=== PATIENT | male | born 1955 | race African-American/Black ===

== ENCOUNTER 2016-12-23 17:22 | Emergency (ER) | payer OTHER ==
[~2016-12-23] VITALS: Ht 167.6 cm; Wt 523.9 kg
[~2016-12-23 17:22] MED LIST: CATAPRES0.2 MG ORAL; COZAAR50 MG ORAL; ELIMITE 5% CREA60 GM TOPIC; GLIPIZIDE5 MG ORAL; HYDRALAZINE HCL50 MG ORAL; HYDROCODON-ACE1 EA13 ORAL; IBUPROFEN600 MG ORAL; NKM; NORVASC10 MG ORAL; NOVOLOG100 UNIT/3 SUBQ; ZOFRAN4 M3 ORAL; insulin
[2016-12-23 18:13] VITALS: BP 137/73
[2016-12-23] MEDS ORDERED: metFORMIN 500mg tab ORAL SCH (18:45)
[2016-12-23] MEDS ORDERED: METFORMIN HCL500 M1 ORAL (20:01)
[2016-12-23 20:15] VITALS: BP 137/73
--- NOTE | 2016-12-23 21:12 | Emergency Room Report ---
History of Present Illness General Chief Complaint: General Complaint Source: Patient Present Illness HPI The patient is a 61-year-old male with a history of type 2 diabetes presenting for feet pain. The patient states that he has been walking more than usual and experienced foot pain so he called 911. EMS took a blood sugar in route which was found to be significantly elevated. The patient admits to type 2 diabetes and has been prescribed oral medication as well as insulin but has not been taking it because he states he has been exercising more and does not need any medication. He is unsure of which medications he is taking or the dosages. Foot pain is described as a 6/10 dull ache to the bottom of both feet and does not radiate. Pain worse with walking. He denies injuring the feet in any way. He denies numbness or tingling. Denies other symptoms including nausea, vomiting, fever, chills, dizziness, blurred vision, diaphoresis, rash, fatigue, chest pain, shortness of breath, dysuria, increased urinary frequency Allergies: Coded Allergies: PENICILLINS (Verified Allergy, Unknown, Hives, 05/04/14) Patient states he gets hives when last taken Patient History Past Medical History: see triage record Pertinent Family History: none Reviewed Nursing Documentation: PMH: Agreed, PSxH: Agreed Nursing Documentation-PMH Hx Cardiac Problems: No Hx Hypertension: Yes Hx Pacemaker: No Hx Asthma: No Hx COPD: No Hx Diabetes: No Hx Cancer: No Hx Gastrointestinal Problems: No Hx Dialysis: No History Of Psychiatric Problem: No Hx Neurological Problems: No Hx Cerebrovascular Accident: No Hx Seizures: No Review of Systems All Other Systems: negative except mentioned in HPI Physical Exam Vital Signs Date Time Temp Pulse Resp B/P Pulse Ox O2 Delivery O2 Flow Rate FiO2 12/23/16 17:19 99.0 86 18 137/73 98 Sp02 EP Interpretation: reviewed, normal General Appearance: no apparent distress, alert, GCS 15, non-toxic Head: normocephalic, atraumatic Eyes: bilateral eye PERRL, bilateral eye normal inspection ENT: hearing grossly normal, normal pharynx, no angioedema, normal voice Respiratory: chest non-tender, lungs clear, normal breath sounds, speaking full sentences Cardiovascular #1: regular rate, rhythm, no edema Musculoskeletal: normal inspection, back normal, gait/station normal, normal range of motion, tender - TTP over plantar surface of bilat feet Neurologic: alert, oriented x3, responsive, motor strength/tone normal, sensory intact, speech normal Psychiatric: judgement/insight normal, memory normal, no suicidal/homicidal ideation Skin: normal color, no rash, warm/dry, well hydrated Lymphatic: no adenopathy Medical Decision Making PA Attestation Dr. Veliz is my supervising physician. Patient management was discussed with my supervising physician Diagnostic Impression: Primary Impression: Diabetes Qualified Codes: E11.65 - Type 2 diabetes mellitus with hyperglycemia ER Course The patient is a [id number] male with a history of diabetes presenting for feet pain and hyperglycemia Differential diagnoses considered but not limited to: Contusion, fracture, tendinitis, sprain, plantar fasciitis Differential diagnoses considered but not limited to: Hyperglycemia, hypoglycemia, DKA Physical exam: Vitals within normal limits. No apparent distress There is tenderness to palpation to bilateral plantar surfaces of feet. No obvious deformity. No edema. Full active range of motion of ankles and toes. Sensation is intact The patient is given 4 units of insulin initially with no significant change of blood sugar. He was then given 8 units of subcutaneous insulin and metformin by mouth which has improved his blood sugar. To be discharged home with a prescription for metformin and needs to followup with his primary doctor. The patient is given ER precautions Last Vital Signs Date Time Temp Pulse Resp B/P Pulse Ox O2 Delivery O2 Flow Rate FiO2 12/23/16 18:13 99.0 80 18 137/73 98 Status: improved Disposition: HOME, SELF-CARE Condition: Improved Scripts Metformin Hcl* (METFORMIN HCL*) 500 Mg Tablet 500 MG ORAL TWICE A DAY, #60 TAB Prov: REJI MARTINEZ 12/23/16 Patient Instructions: Type 2 Diabetes Mellitus, Adult, Hyperglycemia Additional Instructions: I discussed my findings with the patient. All questions and concerns have been answered. Treatment and medication compliance have been addressed. I advised the patient that they need to follow up with PMD in 3-5 days. Return to ED if symptoms worsen, new symptoms arise, or if needed for any reason. Patient verbalized understanding of discharge instructions. REJI MARTINEZ December 23, 2016 21:12
== END 2016-12-23 20:15 | disposition home or self-care (01) ==
LOC: EDBD 17:22 → EMR 17:50
DX: E11.65 Type 2 diabetes mellitus with hyperglycemia (principal); Z79.4 Long term (current) use of insulin; Z79.84 Long term (current) use of oral hypoglycemic drugs; Z88.0 Allergy status to penicillin; I10 Essential (primary) hypertension
CPT/HCPCS: 82962; 99283; J1815